=== PATIENT | male | born 1980 | race Caucasian/White ===

== ENCOUNTER 2016-09-21 20:13 | Emergency (ER) | payer BC ==
[~2016-09-21] VITALS: Ht 165.1 cm; Wt 68.0 kg
[~2016-09-21 20:13] MED LIST: AZIT500T2 PO; EXCED PO; MODA200T30; [UNRECOGNIZED DRUG - OTHER] PO
[2016-09-21 20:27] VITALS: BP_SYST 145
[2016-09-21 21:43] LABS: BASOPHILS % (AUTO) 0.4 % (0.0-2.0); EOSINOPHILS # (AUTO) 0.1 K/uL (0.0-0.4); HEMATOCRIT 45.7 % (36-54); HEMOGLOBIN 14.8 g/dL (14.0-18.0); LYMPHOCYTES # (AUTO) 1.5 K/uL (1.0-5.5); LYMPHOCYTES % (AUTO) 20.7 % (20.5-51.5); MEAN CORPUSCULAR HEMOGLOBIN 30 pg (27-31); MEAN CORPUSCULAR HGB CONC 32 % (32-36); MEAN CORPUSCULAR VOLUME 91 fL (79.0-98.0); MONOCYTES # (AUTO) 0.6 K/uL (0.0-1.0); MONOCYTES % (AUTO) 8.2 % (1.7-9.3); NEUTROPHILS # (AUTO) 5.1 K/uL (1.8-7.7); NEUTROPHILS % (AUTO) 68.7 % (40.0-70.0); PLATELET COUNT (AUTO) 277 K/uL (130-430); RED BLOOD CELL COUNT(AUTO) 5.01 MIL/uL (4.2-6.2); RED CELL DISTRIBUTION WIDTH 13.1 % (9.0-15.0); WHITE BLOOD COUNT (AUTO) 7.3 K/uL (4.8-10.8)
[2016-09-21 21:48] LABS: CALCIUM 8.9 mg/dL (8.4-11.0); CREATININE 1.22 mg/dL (0.55-1.30); POTASSIUM 4.1 mmol/L (3.5-5.1)
[2016-09-21 21:52] LABS: PROTHROMBIN TIME 10.9 SECS (9.5-12.5)
[2016-09-21 21:53] LABS: ALBUMIN 4.4 g/dL (3.4-4.8); TOTAL BILIRUBIN 0.3 mg/dL (0.0-1.0); TOTAL PROTEIN, SERUM 8.1 g/dL (6.4-8.3)
[2016-09-21 22:17] VITALS: BP_SYST 123
== END 2016-09-21 22:19 | disposition home or self-care (01) ==
LOC: SED 20:13
DX: R04.0 Epistaxis (principal); R42 Dizziness and giddiness; G43.909 Migraine, unspecified, not intractable, without status migrainosus; Z88.6 Allergy status to analgesic agent; Z79.2 Long term (current) use of antibiotics; Z79.899 Other long term (current) drug therapy
CPT/HCPCS: 36415; 70450-TC; 80053; 85025; 85610-TC; 85730-TC; 99285

== ENCOUNTER 2017-04-24 20:01 | Emergency (ER) | payer BC ==
[~2017-04-24] VITALS: Ht 165.1 cm; Wt 65.8 kg
[2017-04-24 20:19] VITALS: BP_SYST 122
--- NOTE | 2017-04-24 22:00 | NUR ---
Placed in room 02 . Side rails up. Report given to HANNAH Jordan.
--- NOTE | 2017-04-24 22:04 | NUR ---
Pt AAOx4 ambulated into ED c/o sore throat, productive cough with green phlegm, [place] and nausea. Pt denies vomiting/chest pain/diarrhea. Pt speaking in full sentences, breathing even and unlabored, no cough present during interview. No other injuries/complaints per pt/noted. Will continue to monitor.
--- NOTE | 2017-04-24 22:05 | NUR ---
ER Dr. Young at bedside examining patient.
--- NOTE | 2017-04-24 22:30 | NUR ---
Patient given written and verbal discharge instructions and verbalizes understanding. ER MD Young discussed with patient the results and treatment provided. Patient in stable condition. ID arm band removed. Rxof Zithromax, Robitussin given. Patient educated on pain management and to follow up with PMD. Pain Scale 0. Opportunity for questions provided and answered.
[2017-04-24 23:16] VITALS: BP_SYST 126
== END 2017-04-24 23:16 | disposition home or self-care (01) ==
LOC: SED 20:01
DX: J20.9 Acute bronchitis, unspecified (principal); G43.909 Migraine, unspecified, not intractable, without status migrainosus; Z88.5 Allergy status to narcotic agent; Z90.89 Acquired absence of other organs
CPT/HCPCS: 36415; 86710; 99284

== ENCOUNTER 2018-12-13 21:15 | Emergency (ER) | payer BC ==
[~2018-12-13] VITALS: Ht 165.1 cm; Wt 65.8 kg
[~2018-12-13 21:15] MED LIST changes: +MODA200T22; -MODA200T30
[2018-12-13 21:36] VITALS: BP_SYST 143
== END 2018-12-13 22:37 | disposition left against medical advice (07) ==
LOC: SED 21:15
DX: K92.2 Gastrointestinal hemorrhage, unspecified (principal); Z53.21 Procedure and treatment not carried out due to patient leaving prior to being seen by health care provider

== ENCOUNTER 2019-05-26 22:33 | Emergency (ER) | payer BC, OTHER ==
[~2019-05-26] VITALS: Ht 165.1 cm; Wt 68.0 kg
[2019-05-26 23:18] VITALS: BP_SYST 140
--- NOTE | 2019-05-27 01:22 | NUR ---
Caleed pt in, no answer
--- NOTE | 2019-05-27 01:22 | NUR ---
Patient left without being seen. No further treatment provided. ER MD aware
== END 2019-05-27 01:22 | disposition left against medical advice (07) ==
LOC: SED 22:33
DX: M54.5 Low back pain (principal); R11.10 Vomiting, unspecified; Z53.21 Procedure and treatment not carried out due to patient leaving prior to being seen by health care provider